=== PATIENT | male | born 1955 | race Hispanic/Latino ===

== ENCOUNTER 2020-10-30 11:52 | Emergency (ER) | payer OTHER ==
[~2020-10-30] VITALS: Ht 177.8 cm; Wt 90.7 kg
[2020-10-30] MEDS ORDERED: CEFAZOLIN SODIUM 1 GM VIAL IVP SCH (12:30)
[2020-10-30] MEDS ORDERED: LIDOCAINE 1%-EPI 1:100,000 20 ML VIAL IJ SCH (12:30)
[2020-10-30] MEDS ORDERED: CEPHALEXIN 500 MG CAPSULE PO ONE (12:30)
[2020-10-30] MEDS ORDERED: TRAM1TAB PO (13:16)
[2020-10-30] MEDS ORDERED: CEPH500B PO (13:16)
[2020-10-30 13:39] VITALS: BP 155/72
== END 2020-10-30 13:41 | disposition home or self-care (01) ==
LOC: EDH 11:52
DX: S81.811A Laceration without foreign body, right lower leg, initial encounter (principal); Z79.899 Other long term (current) drug therapy; X58.XXXA Exposure to other specified factors, initial encounter; Y93.89 Activity, other specified; Y92.69 Other specified industrial and construction area as the place of occurrence of the external cause; Y99.0 Civilian activity done for income or pay
CPT/HCPCS: 12004; 73590; 96374; 99283; J0690